=== PATIENT | female | born 1965 ===

== ENCOUNTER 2017-04-07 12:20 | Emergency (ER) | payer BC ==
[2017-04-07 12:33] VITALS: BP 169/93; PULSE 60; RESP 16; O2SAT 98
--- NOTE | 2017-04-07 13:12 | ED PDOC ---
Arrival/HPI <Pete Hester - Last Filed: 04/07/17 14:32> - General Historian: Patient - History of Present Illness Time/Duration: Prior to Arrival Context: Home <Mykel Domingo - Last Filed: 04/09/17 22:12> - General Chief Complaint: Abnormal Skin Integrity Time Seen by Provider: 04/07/17 13:08 - History of Present Illness Narrative History of Present Illness (Text): 04/07/17 13:10 This 51 yo female presents to this ED with her daughter c/o left index finger laceration x INFORMATION TECHNOLOGY ANALYST. Patient stated she accidentally cut finger with kitchen knife. Patient is left hand dominant. Denies other complains. Tetanus is UKN (Mykel Domingo) Past Medical History - Provider Review Nursing Documentation Reviewed: Yes - Reproductive Menopause: Yes - Cardiac Hx Cardiac Disorders: No - Pulmonary Hx Respiratory Disorders: No - Neurological Hx Neurological Disorder: No - HEENT Hx HEENT Disorder: No - Renal Hx Renal Disorder: Yes Hx Kidney Stones: Yes (stent removed this year) - Endocrine/Metabolic Hx Endocrine Disorders: No - Hematological/Oncological Hx Blood Disorders: No - Integumentary Hx Dermatological Disorder: No - Musculoskeletal/Rheumatological Hx Musculoskeletal Disorders: No - Gastrointestinal Hx Gastrointestinal Disorders: No - Genitourinary/Gynecological Hx Genitourinary Disorders: No - Psychiatric Hx Psychophysiologic Disorder: No Hx Substance Use: No - Surgical History Hx Tubal Ligation: Yes (reversal on 1997) <Mykel Domnigo - Last Filed: 04/09/17 22:12> Family/Social History - Physician Review Nursing Documentation Reviewed: Yes Family/Social History: No Known Family HX Smoking Status: Current Some Days Smoker Hx Alcohol Use: Yes Frequency of alcohol use: Socially Hx Substance Use: No <Mykel Domingo - Last Filed: 04/09/17 22:12> Allergies/Home Meds <Pete Hester - Last Filed: 04/07/17 14:32> <Mykel Domingo - Last Filed: 04/09/17 22:12> Allergies/Adverse Reactions: Allergies No Known Allergies Allergy (Verified 04/07/17 12:32) Home Medications: Home Meds Medication Instructions Recorded Confirmed No Known Home Med 04/07/17 04/07/17 Review of Systems - Review of Systems Constitutional: Normal. absent: Fatigue, Weight Change, Fevers Eyes: Normal ENT: Normal Respiratory: Normal Cardiovascular: Normal Gastrointestinal: Normal Genitourinary Female: Normal Musculoskeletal: Other (left index finger laceration) Skin: Normal Neurological: Normal Endocrine: Normal Hemo/Lymphatic: Normal Psychiatric: Normal <Mykel Domingo - Last Filed: 04/09/17 22:12> Physical Exam Temperature: Afebrile Blood Pressure: Normal Pulse: Regular Respiratory Rate: Normal Appearance: Positive for: Well-Appearing, Non-Toxic, Comfortable Pain Distress: None Mental Status: Positive for: Alert and Oriented X 3 - Systems Exam Head: Present: Atraumatic, Normocephalic Pupils: Present: PERRL Extroacular Muscles: Present: EOMI Conjunctiva: Present: Normal Mouth: Present: Moist Mucous Membranes Neck: Present: Normal Range of Motion Upper Extremity: Present: Normal ROM, NORMAL PULSES, Neurovascularly Intact, Capillary Refill < 2s, Other ((+) 1.5 cm superficial laceration distal palmar index finger). No: Cyanosis, Edema Lower Extremity: Present: Normal Inspection, Normal ROM Neurological: Present: GCS=15, CN II-XII Intact, Speech Normal, Motor Func Grossly Intact, Gait Normal, Memory Normal Skin: Present: Warm, Dry, Normal Color. No: Rashes Psychiatric: Present: Alert, Oriented x 3, Normal Insight, Normal Concentration <Mykel Domingo - Last Filed: 04/09/17 22:12> Vital Signs Temp Pulse Resp BP Pulse Ox 04/07/17 14:21 98 F 04/07/17 12:32 98.7 F 60 16 169/93 H 98 Medical Decision Making <Pete Hester - Last Filed: 04/07/17 14:32> Re-evaluation Time: 14:05 Reassessment Condition: Re-examined, Improved <Mykel Domingo - Last Filed: 04/09/17 22:12> ED Course and Treatment: I was available for consultation during PA evaluation. The chart was reviewed by me, and I agree with disposition. The documented history was done by the physician improvement leader. The documented physical exam was done by the physician improvement leader. The documented procedures were done by the physician improvement leader. ( Pete Hester) Re-evaluation. Patient feels better. Discussed results and plan with patient who expresses understanding. All questions answered and there is agreement with the plan to discharge home with instructions. Patient stable for discharge. Return if symptoms persist or worsen. Finger laceration was repaired with Dermabond under sterile technique (Mykel Domingo) - Medication Orders Current Medication Orders: Discontinued Medications Tetanus/Reduced Diphtheria/Acell Pertussis (Boostrix Vaccine Inj) 0.5 ml IM .ONCE ONE Stop: 04/07/17 13:45 Last Admin: 04/07/17 13:55 Dose: 0.5 ml - Procedure PROCEDURE NOTE (Text): 04/07/17 14:06 Laceration repaired performed by me (Mykel Domingo) - Scribe Statement The provider has reviewed the documentation as recorded by the Scribe <Pete Hester - Last Filed: 04/07/17 14:32> - PA / SPEECH PATHOLOGIST ASSISTANT / Resident Statement MD/DO has reviewed & agrees with the documentation as recorded. - Scribe Statement The provider has reviewed the documentation as recorded by the Scribe <Mykel Domingo - Last Filed: 04/09/17 22:12> - Scribe Statement Enid Alexander Provider Scribe Attestation: All medical record entries made by the Scribe were at my direction and personally dictated by me. I have reviewed the chart and agree that the record accurately reflects my personal performance of the history, physical exam, medical decision making, and the department course for this patient. I have also personally directed, reviewed, and agree with the discharge instructions and disposition. (Pete Hester) Disposition/Present on Arrival <Pete Hester - Last Filed: 04/07/17 14:32> - Present on Arrival Any Indicators Present on Arrival: No History of DVT/PE: No History of Uncontrolled Diabetes: No Urinary Catheter: No History of Decub. Ulcer: No History Surgical Site Infection Following: None - Disposition Have Diagnosis and Disposition been Completed?: Yes Disposition Time: 14:05 Patient Plan: Discharge <Mykel Domingo - Last Filed: 04/09/17 22:12> - Disposition Diagnosis: Finger laceration Disposition: HOME/ ROUTINE Condition: GOOD Discharge Instructions (ExitCare): Laceration (ED) Additional Instructions: Call private doctor for follow up visit in 1-2 days. Keep wound clean and dry for 2 days, then clean wound with soap and water. Return to [facility] if symptoms worsen. Referrals: Vj King [Primary Care Provider] - Follow up with primary Forms: [employer] (Italian)
[2017-04-07] MEDS ORDERED: TDAP Vaccine 0.5 mL Syr IM ONE (13:44)
[2017-04-07 14:48] VITALS: TEMP 98
== END 2017-04-07 14:50 | disposition home or self-care (01) ==
LOC: ED 12:20
DX: S61.211A Laceration without foreign body of left index finger without damage to nail, initial encounter (principal); W26.0XXA Contact with knife, initial encounter; Z23 Encounter for immunization; F17.210 Nicotine dependence, cigarettes, uncomplicated